=== PATIENT | male | born 1975 | race Caucasian/White ===

== ENCOUNTER 2020-03-27 02:05 | Emergency (ER) | payer OTHER ==
[~2020-03-27] VITALS: Ht 175.3 cm; Wt 109.8 kg
[2020-03-27 02:19] VITALS: Ht 175.3 cm; Wt 109.8 kg
[2020-03-27 03:40] VITALS: BP 135/82
== END 2020-03-27 03:40 | disposition home or self-care (01) ==
LOC: ED 02:05
DX: S86.911A Strain of unspecified muscle(s) and tendon(s) at lower leg level, right leg, initial encounter (principal); X58.XXXA Exposure to other specified factors, initial encounter; Y93.89 Activity, other specified; Y92.89 Other specified places as the place of occurrence of the external cause; Y99.8 Other external cause status